=== PATIENT | female | born 1940 | race African-American/Black ===

== ENCOUNTER 2025-03-04 19:07 | Inpatient (IN) | payer MEDICARE, SELFPAY ==
[2025-03-04] VITALS (11 sets, daily range): BP systolic 124–182; BP diastolic 48–111; BMI 20.4
[2025-03-04 13:35] LABS: Hematocrit 35.9 % (37.0-47.0); Hemoglobin 11.5 g/dL (12.0-16.0); Mean Corp Hgb Conc. 32.0 g/dL (33.0-37.0); Mean Corpuscular Volume 95.5 fL (81.0-99.0); Nucleated Red Blood Cells % 0 %; Platelet Count 171 10^3/uL (130-400); Red Cell Dist. Width 13.0 % (11.5-14.5)
[2025-03-04 14:03] LABS: ALT (SGPT) 15 U/L (0-35); AST (SGOT) 23 U/L (14-36); Albumin 3.4 g/dl (3.5-5.0); Alkaline Phosphatase 69 U/L (38-126); Blood Urea Nitrogen 24 mg/dl (7-17); Calcium 8.7 mg/dl (8.4-10.2); Carbon Dioxide 26 mmol/L (22-30); Chloride 112 mmol/L (98-107); Estimated Creatinine Clearance 30 ml/min; Glucose 91 mg/dl (70-99); Potassium 4.1 mmol/L (3.5-5.1); Sodium 141 mmol/L (135-145); Total Protein 6.1 g/dl (6.3-8.2); eGFR 49.55
--- NOTE | 2025-03-04 15:32 | ED.GENMED ---
History of Present Illness
General
Chief Complaint: Weakness
Source: ambulance crew and long term
Exam Limitations: clinical condition and dementia
Time Seen by Provider: 03/04/25 14:01
Nursing documentation reviewed up to this point in time: agreed with
History of Present Illness
History of Present Illness:
pt is a 85 y/o F with h/o alzheimers, stroke with L hemiparesis, htn, hld
[place] and sent via [place] for altered mental status
i spoke justo gilbert from the [facility] on the phone who gave account of what happened
pt was herself this morning, ate breakfast normally, ate lunch and then after was sitting with her and started falling asleep which is unusual, she doesn't usually fall asleep during the day and they would wake her up and she would come out
of it but then fall back asleep again and they thought pt's leg was shaking
for ems pt apparently had HR in the 50s and they thought ekg showed st elevation
pt is asleep here, easily arousable but then when she is awake, is not making much sense
this sounds like partly her [facility], she can communicate some things, usually mixes up words and doesn't follow comamnds at [facility] from her stroke but she can make some sentences that do make sense.
we do not have baselin labs, she has never been here before.
no known issues with new illness, utis, falls
Past History
Past History
ED Past Medical History: CVA, HTN, Hypercholesterolemia and Psychiatric
Review of Systems
Review of Systems
Allergies reviewed?: Yes
Unable to obtain full review of systems at this time due to: dementia
Phy Exam
Physical Exam
Physical Exam:
GENERAL: asleep, easily arousable
HEAD: NCAT
EYE: pupils equal and reactive, no nystagmus, no photophobia
NECK: Supple,full rom, nontender
ENT: o/p clr, mmm.
CARDIAC: Regular rate and rhythm . no edema
LUNGS: Clear breath sounds bilaterally, no acute respiratory distress, no wheezes/rales/rhonchi
ABDOMEN: Soft, without focal tenderness, no r/g, no cvat
NEUROLOGICAL:awake; not oriented; nonsensical speech, doesn't make sense; doesn't follow commands; , no facial asymmetry, LUE contracted; left leg flaccid
SKIN: Warm and dry, skin intact.
MUSCULOSKELETAL: No edema, well perfused.
PSYCH: dementia/stroke; calm
Course
Orders/Labs/Results
Orders:
Orders
03/04/25 13:17
EKG [Electrocardiogram (*1)] Urgent
Reason for Study: Chest Pain
EKG- Treatment ONCE
03/04/25 13:19
Complete Blood Count/With Diff Urgent
Comprehensive Metabolic Panel Urgent
03/04/25 14:32
CT Head W/o Iv Contrast Urgent
Comment:
Reason For Exam: ams, h/o stroke
03/04/25 15:12
COVID-19 Antigen Urgent
Source: Nasal Swab
Troponin I Urgent
03/04/25 16:41
Urinalysis Reflex To Culture Urgent
Date Specimen was Collected: 03/04/25
Time Specimen was Collected: 16:13
Urine Microscopic Reflex Cult Urgent
Urine Culture Urgent
ALIREZA Source: U
Specimen Description:
Date Specimen was Collected: 03/04/25
Time Specimen was Collected: 16:13
03/04/25 18:11
0.9% Sodium Chloride 500 ml [Nss] 500 ml IV BOLUS
CefTRIAXone [Rocephin] 1,000 mg IV NOW STA
Abnormal Lab Results
03/04/25 03/04/25
13:19 16:41
WBC 2.9 L 10^3/uL
(4.8-10.8)
RBC 3.76 L 10^6/uL
(4.20-5.40)
Hgb 11.5 L g/dL
(12.0-16.0)
Hct 35.9 L %
(37.0-47.0)
MCHC 32.0 L g/dL
(33.0-37.0)
MPV 10.8 H fL
(7.4-10.4)
Absolute Lymphs (auto) 1.1 L 10^3/uL
(1.2-3.4)
Monocytes % 13.0 H %
(1.7-9.3)
Chloride 112 H mmol/L
(98-107)
BUN 24 H mg/dl
(7-17)
Creatinine 1.1 H mg/dL
(0.6-1.0)
Total Protein 6.1 L g/dl
(6.3-8.2)
Albumin 3.4 L g/dl
(3.5-5.0)
Leukocyte Esterase Rfl 1+ A
(Negative)
Urine WBC (Reflex) 11-15 A /HPF
(0-5)
Urine Bacteria (Reflex) Many A
(Negative)
Urine Albumin (Reflex) 1+ A
(Neg - Trace)
03/04/25 13:19
03/04/25 13:19
Vital Signs
Initial and Last Documented VS:
Initial Vital Signs
Temp Pulse Resp BP Pulse Ox
36.6 C 58 16 156/111 98
03/04/25 12:59 03/04/25 12:59 03/04/25 12:59 03/04/25 12:59 03/04/25 12:59
Last Documented Vital Signs
Temp Pulse Resp BP Pulse Ox
36.6 C 65 15 139/83 99
03/04/25 12:59 03/04/25 17:30 03/04/25 17:30 03/04/25 17:00 03/04/25 15:33
MDM/Problems Addressed
Differential Diagnosis Includes:
ams, uti
MDM/Problems Addressed:
85 y/o F
from [facility]
stroke and dementia
baseline she does speak but mostly nonsensically and L hemiparesis
falling asleep today which is unusual, didn't seem herself, sometime this afternoon
i spoke with staff who saw her nod off
i tried to call her but there was no answer
pt is sleeping but wakes with verbal stimuli
but then is not following commands; word salad
L hemiparesis, moves RUE
urine looks mildly positive
leukopenia
cr 1.1, no old one
NH did not have any labs
ct head no acute findings
will treat with ivf and abx
*Pulse Oximetry
SaO2: 99
Oxygen Mode of Delivery: Room air
Patient hypoxic: no (98)
*Critical Care Note
Total Time (30-74mins, 75-104mins- exclusive of procedures): Not Applicable
ED Attending Note
-
Portions of this chart may have been created with voice recognition software.� Occasional wrong word or��sound alike� substitutions may have occurred due to the inherent limitations of voice recognition software.
Discharge Plan
Departure
Patient Disposition: Admit
Date of Disposition: 03/04/25
Time of Disposition: 18:11
Admit to: Med/Surg
Presentation/result/management discussed w/ accepting MD/DO: Hospitalist
Condition: Fair
Covid-19: Negative COVID-19
Discharge Problem:
UTI (urinary tract infection), AMS (altered mental status), Dehydration
Prescriptions:
No Action
acetaminophen 325 mg Tablet
650 mg PO Q6H PRN (Reason: mild pain)
clopidogrel 75 mg tablet
75 mg PO DAILY@0800
aspirin 81 mg Tablet,Delayed Release (Dr/Ec)
81 mg PO DAILY@0800
amlodipine 10 mg tablet
10 mg PO DAILY@0800
rosuvastatin 10 mg Tablet
10 mg PO QPM@1999
Referrals:
KEILA GONZALEZ MD [Family Provider, Internal Medicine]
Interventions
Interventions:
*Risk Screen - Suicide Last Done: 03/04/25 14:00
*General Assessment Last Done: 03/04/25 14:00
*Neglect/Abuse Screening Last Done: 03/04/25 14:00
*ED- Fall Risk Assessment Last Done: 03/04/25 14:00
ED- Cardiac Assessment Last Done: 03/04/25 14:00
ED- Neurological Assessment Last Done: 03/04/25 14:00
ED- Pulmonary Assessment Last Done: 03/04/25 14:00
Discharge Date and Time
Print Language: SINGAPOREAN
[2025-03-04 15:43] LABS: COVID-19 Antigen Negative (Negative)
[2025-03-04 15:53] LABS: Troponin I < 0.012 ng/ml
[2025-03-04 17:01] LABS: Urine Character Clear (Clear)
[2025-03-04 17:20] LABS: Urine Red Blood Cell 0-2 /HPF (0-2); Urine Squamous Cell 0-2 /LPF (Few)
--- NOTE | 2025-03-04 18:35 | HPS.HSE ---
Addendum entered and electronically signed by Saw Olmstead MD 03/04/25 19:31:
This is an addendum to H&P written by Barbara Andrews on 03/04/2025. Patient seen and examined independently with HIDE CURER.
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 She was herself
this morning and was sitting with her started falling asleep which was unusual and became more unresponsive and was not speaking. As per patient spouse he did not notice any shaking or seizure-like activity or eye blinking. EMS noted heart
rate in the 50s EKG showed ST elevation. She did seem to complain of some abdominal pain and was rubbing her belly in the morning. No urinary symptoms noted.
Per patient's baseline she can communicate some things and mixes up words and does not follow commands but can speak some sentences. She appears to be back to her baseline
Vital signs normal. On examination patient with stiff left upper extremity, consistent with known hemiparesis from prior CVA.
Labs show white cell count 2.9. Creatinine 1.1. Urinalysis shows 11-15 WBC, +[address] head showed
Patient with acute metabolic encephalopathy likely UTI. Slight RUDOLPH but urinalysis not convincing for UTI. IV fluids, ceftriaxone. Urine culture pending. Was initially going to consider MRI brain however after discussing with and
patient's current improvement this seems likely metabolic in nature.
Original Note:
Family Physician
-
Family Physician: KEILA GONZALEZ MD
Chief Complaint
-
confusion
History of Present Illness
85 y/o F with h/o alzheimers, stroke with L hemiparesis, htn, hld presented [place] and sent via [place] for altered mental status. as per ER note pt was herself this morning, ate breakfast normally, ate lunch and then after was sitting with her
and started falling asleep which is unusual, she doesn't usually fall asleep during the day and they would wake her up and she would come out of it but then fall back asleep again and they thought pt's leg was shaking.
upon my assessment patient laying with eyes closed, easily arousable. ROS limited as patient is confused and does not make any sense.
Patient received a dose of ceftriaxone, normal saline in the ER
Medical History
Past Medical History
Past Medical History: Reports Other
Additional Past Medical History:
Hypertension, arthritis, Alzheimer's
Past Surgical History: Reports Other
Social History
Unable to obtain full social history at this time due to: Acuity
Family History
Family History: Not pertinent
Allergies / Home Medications
Allergies reflects when Allergies were last updated in [employer].
Home Medications with original date entered in [employer]
Allergy/Medication List:
Allergies
Allergy/AdvReac Type Severity Reaction Status Date / Time
memantine (From Namenda) Allergy Unknown Unknown Verified 03/04/25 13:11
Home Medications
acetaminophen 325 mg tablet 650 mg PO Q6H PRN mild pain 03/04/25
amlodipine 10 mg tablet 10 mg PO DAILY@79903/04/25
aspirin 81 mg tablet,delayed release 81 mg PO DAILY@79903/04/25
clopidogrel 75 mg tablet 75 mg PO DAILY@79903/04/25
rosuvastatin 10 mg tablet 10 mg PO QPM@199903/04/25
Review of Systems
-
Unable to obtain full review of systems at this time due to: Acuity
Physical Exam
Vital Signs
Vital Signs
Temp Pulse Resp BP Pulse Ox
97.8 F 65 15 139/83 99
03/04/25 12:59 03/04/25 17:30 03/04/25 17:30 03/04/25 17:00 03/04/25 15:33
Physical Exam
General: Well Developed, Well Nourished and No Apparent Distress
HEENT: NormoCephalic, Moist mucous membranes and Atraumatic
Respiratory: Clear
Cardiac: S1/S2 and Regular Rhythm; No Murmur or Rub
GI: Soft, Non Tender, Non Distended and Normal Bowel Sounds; No Organomegaly
Rectal: Deferred by Provider
Musculoskeletal: No Clubbing, No Cyanosis and No Edema
Skin: No Rash
Neuro: Nonfocal/grossly intact
Psych: Confused
Laboratory Results
-
03/04/25 13:19
03/04/25 13:19
Laboratory Results
Total Bilirubin 0.4 mg/dl (0.2-1.3) 03/04/25 13:19
AST 23 U/L (14-36) 03/04/25 13:19
ALT 15 U/L (0-35) 03/04/25 13:19
Alkaline Phosphatase 69 U/L (38-126) 03/04/25 13:19
Troponin I < 0.012 ng/ml 03/04/25 15:12
Data Reviewed
-
CT Scan: Report Reviewed by me
Lab Data: Labs Reviewed by me
Impression/Plan
-
# Metabolic encephalopathy likely secondary to UTI VS CVA
- WBCs 2.9
- CT head negative for acute findings, old lacunar infracts.
- IV ceftriaxone continued
- CBC in a.m.
-obtain MRI in AM r/o acute CVA
-consider neuro consult if MRI positive.
-urine culture pending.
# Acute kidney injury likely chronic vs dehydration
- Creatinine 1.1
- Normal saline in the ER
- BMP in a.m.
# history of CVA with left hemiparesis
- Aspirin, Plavix, statin continued
#Essential hypertension
- Norvasc continue with all parameters
# DVT prophylaxis
- Lovenox
# CODE STATUS
- DNR
[2025-03-04] MEDS: ROCEPHIN 1000 MG IV (19:12)
[2025-03-04] MEDS: NSS 500 IV (19:12)
--- NOTE | 2025-03-04 19:31 | EDRN ---
Report received, braeden meds ordered and sent paperwork to the floor
[2025-03-04] MEDS: CRESTOR PO (21:34)
[2025-03-04] MEDS: NSS 1000 IV (23:41)
[2025-03-05] MEDS: APRESOLINE 5 MG IV (00:12)
--- NOTE | 2025-03-05 00:24 | PTCARENOTE ---
received pt from ED on 03/04 at 2020. pt pulled over from stretcher to bed. A&O x 1, with expressive aphasia. However does not follow simple commands. pt made comfortable in bed, call pierce within reach.
[2025-03-05 03:33] VITALS: BP 108/73
[2025-03-05 07:06] VITALS: BP 110/78
[2025-03-05 07:49] LABS: Hematocrit 37.6 % (37.0-47.0); Hemoglobin 12.5 g/dL (12.0-16.0); Mean Corp Hgb Conc. 33.2 g/dL (33.0-37.0); Mean Corpuscular Volume 91.0 fL (81.0-99.0); Platelet Count 176 10^3/uL (130-400); Red Cell Dist. Width 12.4 % (11.5-14.5)
[2025-03-05 08:15] LABS: Blood Urea Nitrogen 19 mg/dl (7-17); Calcium 9.5 mg/dl (8.4-10.2); Carbon Dioxide 27 mmol/L (22-30); Chloride 108 mmol/L (98-107); Estimated Creatinine Clearance 33 ml/min; Glucose 95 mg/dl (70-99); Potassium 4.4 mmol/L (3.5-5.1); Sodium 141 mmol/L (135-145); eGFR 55.55
[2025-03-05] MEDS: PLAVIX 75 MG PO (09:43)
[2025-03-05] MEDS: ASPIR LOW (ENTERIC COATED) 81 MG PO (09:43)
[2025-03-05] MEDS: NORVASC 10 MG PO (09:43)
--- NOTE | 2025-03-05 11:23 | W.PN.HOSP.TC ---
Today's Communication/Plan
-
CW IV ceftriaxone
Follow labs
PT/OT eval
DC planning
Assessment / Plan
Assessment / Plan
# Change in MS -suspect sec to acute toxic encephalopathy likely secondary to UTI
- WBCs 2.9
- US with pyuria
- CT head negative for acute findings, old lacunar infracts.
- cw IV ceftriaxone continued
-urine culture pending.
- Non focal neurologically but difficult to examine due to dementia
#Possible Acute kidney injury ? dehydration - unkown baseline
- Creatinine 1.1 -improving to 1.0
- hold further IV fluids as taking PO
- Follow BMP
# history of CVA with left hemiparesis
- Aspirin, Plavix, statin continued
#Essential hypertension
- Norvasc continue with all parameters
# DVT prophylaxis
- Lovenox
# CODE STATUS
- DNR
Anticipated Discharge: 24 - 48 hours
Subjective/Interval History
-
Date of Service: March 05, 2025
Pleasantly confused with smile on her face. No meaningful history from the patient's due to his dementia.
Objective Data
-
Labs:
Laboratory Results
03/05/25
06:44
WBC 3.8 L
Hgb 12.5
Hct 37.6
Plt Count 176
Sodium 141
Potassium 4.4
Chloride 108 H
Carbon Dioxide 27
BUN 19 H
Creatinine 1.0
Glucose 95
Calcium 9.5
Vital Signs:
Vital Signs
Temp Pulse Resp BP Pulse Ox
97.4 F 72 16 110/78 94
03/04/25 23:16 03/05/25 09:43 03/05/25 07:06 03/05/25 09:43 03/05/25 07:06
I&O
03/04/25 03/05/25 03/06/25
06:59 06:59 06:59
Intake Total 600 / 600
Balance 600 / 600
Review of Systems
-
Unable to obtain full review of systems at this time due to: Dementia
Physical Exam
-
General: Comfortable
Respiratory: Clear to Auscultation and Non Labored Respirations; Negative Accessory Resp Muscle Use
Cardiac: Regular Rhythm and S1/S2; Negative Tachycardic
GI: Soft and Nontender
Musculoskeletal: No Edema
Neuro: Awake, Alert, No Motor Deficits (moves all 4 limbs but difficult to examine due to dementia ), Tremors and Other (JING ;no nystagmus); Negative Oriented, Slurred Speech or Facial Droop
Psych: Calm and Confused; Negative Agitated
Data Reviewed
-
Labs: Labs Reviewed by me
[2025-03-05] MEDS: NSS 1000 IV (12:38)
[2025-03-05 15:16] VITALS: BP 110/74
--- NOTE | 2025-03-05 15:23 | CM ---
Unable to complete initial assessment with patient due to confusion and dementia. Called POA, Mr. Serafin Lei, no answer at [phone]. Also no voice mail to leave message after 10 rings. Information obtained from medical records. Patient
resides at [facility] in [place]. She was admitted with weakness, dementia, S/P CVA with residual L hemiparesis. Presents with confusion. PCP is Dr. Emory Mckeon. IMM not reviewed due to inability to reach POA. Discharge POC:
TBD. Await therapy evaluation.
[2025-03-05] MEDS: LOVENOX SC (17:30)
[2025-03-05] MEDS: ROCEPHIN 1000 MG IV (17:36)
[2025-03-05] MEDS: STERILE WATER FOR INJECTION 10 ML IV (17:37)
[2025-03-05] MEDS: CRESTOR 10 MG PO (19:43)
[2025-03-05 23:06] VITALS: BP 148/75
[2025-03-06 07:35] VITALS: BP 107/76
[2025-03-06 07:35] LABS: Hematocrit 35.7 % (37.0-47.0); Hemoglobin 11.9 g/dL (12.0-16.0); Mean Corp Hgb Conc. 33.3 g/dL (33.0-37.0); Mean Corpuscular Volume 90.2 fL (81.0-99.0); Platelet Count 185 10^3/uL (130-400); Red Cell Dist. Width 12.5 % (11.5-14.5)
[2025-03-06 08:10] LABS: Blood Urea Nitrogen 15 mg/dl (7-17); Calcium 8.8 mg/dl (8.4-10.2); Carbon Dioxide 29 mmol/L (22-30); Chloride 109 mmol/L (98-107); Estimated Creatinine Clearance 30 ml/min; Glucose 96 mg/dl (70-99); Potassium 4.1 mmol/L (3.5-5.1); Sodium 142 mmol/L (135-145); eGFR 49.55
[2025-03-06] MEDS: ASPIR LOW (ENTERIC COATED) 81 MG PO (10:28)
[2025-03-06] MEDS: PLAVIX 75 MG PO (10:28)
[2025-03-06] MEDS: NORVASC 10 MG PO (10:28)
--- NOTE | 2025-03-06 14:32 | W.PN.HOSP.TC ---
Today's Communication/Plan
-
f/u urine cultures
Assessment / Plan
Assessment / Plan
# Change in MS -suspect sec to acute toxic encephalopathy likely secondary to UTI
- US with pyuria
- CT head negative for acute findings, old lacunar infracts.
- cw IV ceftriaxone continued
-urine culture pending.
- Non focal neurologically but difficult to examine due to dementia
#RUDOLPH v CKD
- Creatinine 1.1 -improving to 1.0
- hold further IV fluids as taking PO
- Follow BMP
# history of CVA with left hemiparesis
- Aspirin, Plavix, statin continued
#Essential hypertension
- Norvasc continue with all parameters
# DVT prophylaxis
- Lovenox
# CODE STATUS
- DNR
Anticipated Discharge: Within 24 hours
Subjective/Interval History
-
Date of Service: March 06, 2025
no acute events overnight
Objective Data
-
Labs:
Laboratory Results
03/06/25
07:04
WBC 2.9 L
Hgb 11.9 L
Hct 35.7 L
Plt Count 185
Sodium 142
Potassium 4.1
Chloride 109 H
Carbon Dioxide 29
BUN 15
Creatinine 1.1 H
Glucose 96
Calcium 8.8
Vital Signs:
Vital Signs
Temp Pulse Resp BP Pulse Ox
98.7 F 59 16 122/70 98
03/06/25 07:35 03/06/25 07:35 03/06/25 07:35 03/06/25 10:28 03/06/25 07:35
I&O
03/05/25 03/06/25 03/07/25
06:59 06:59 06:59
Intake Total 600 / 600 120 / 120
Balance 600 / 600 120 / 120
Review of Systems
-
Unable to obtain full review of systems at this time due to: Dementia
Physical Exam
-
General: Comfortable
Respiratory: Clear to Auscultation and Non Labored Respirations; Negative Accessory Resp Muscle Use
Cardiac: Regular Rhythm and S1/S2; Negative Tachycardic
GI: Soft and Nontender
Musculoskeletal: No Edema
Neuro: Awake, Alert, No Motor Deficits (moves all 4 limbs but difficult to examine due to dementia ), Tremors and Other (JING ;no nystagmus); Negative Oriented, Slurred Speech or Facial Droop
Psych: Calm and Confused; Negative Agitated
Data Reviewed
-
Labs: Labs Reviewed by me
[2025-03-06 15:10] VITALS: BP 165/92
[2025-03-06] MEDS: STERILE WATER FOR INJECTION 10 ML IV (17:44)
[2025-03-06] MEDS: ROCEPHIN 1000 MG IV (17:45)
[2025-03-06] MEDS: LOVENOX 40 MG SC (17:47)
[2025-03-06] MEDS: CRESTOR 10 MG PO (21:56)
[2025-03-06 23:49] VITALS: BP 147/68
[2025-03-07 07:25] VITALS: BP 152/66
[2025-03-07 09:13] LABS: Blood Urea Nitrogen 16 mg/dl (7-17); Calcium 9.7 mg/dl (8.4-10.2); Carbon Dioxide 27 mmol/L (22-30); Chloride 105 mmol/L (98-107); Estimated Creatinine Clearance 30 ml/min; Glucose 100 mg/dl (70-99); Potassium 4.3 mmol/L (3.5-5.1); Sodium 141 mmol/L (135-145); eGFR 49.55
[2025-03-07 09:15] LABS: Hematocrit 42.6 % (37.0-47.0); Hemoglobin 14.3 g/dL (12.0-16.0); Mean Corp Hgb Conc. 33.6 g/dL (33.0-37.0); Mean Corpuscular Volume 90.3 fL (81.0-99.0); Platelet Count 206 10^3/uL (130-400); Red Cell Dist. Width 12.3 % (11.5-14.5)
[2025-03-07] MEDS: ASPIR LOW (ENTERIC COATED) 81 MG PO (09:26)
[2025-03-07] MEDS: NORVASC 10 MG PO (09:26)
[2025-03-07] MEDS: PLAVIX 75 MG PO (09:27)
--- NOTE | 2025-03-07 13:58 | W.PN.HOSP.TC ---
Addendum entered and electronically signed by Joe Razo MD 03/07/25 15:59:
[id number]
Original Note:
Today's Communication/Plan
-
f/u outpt
monitor bmp
Assessment / Plan
Assessment / Plan
# Acute on chronic metabolic encephalopathy, secondary to dementia
� No obvious source of infection, UA negative
� Patient's status appeared to be baseline prior to admission
� May suspect altering mental status, worsening in setting of ongoing dementia
-�Urine cultures negative, DC antibiotics
- Non focal neurologically but difficult to examine due to dementia
#RUDOLPH v CKD
- Creatinine 1.1 -improving to 1.0
- hold further IV fluids as taking PO
- Follow BMP
# history of CVA with left hemiparesis
- Aspirin, Plavix, statin continued
#Essential hypertension
- Norvasc continue with all parameters
# DVT prophylaxis
- Lovenox
# CODE STATUS
- DNR
More than 30 minutes spent in discharge including
Final examination of the patient
Summarizing hospital stay
Instructions for continuing care to all relevant caregivers
Preparation of discharge records, prescriptions, and referral forms
Total time spent (in minutes): 36
Anticipated Discharge: Today
Subjective/Interval History
-
Date of Service: March 07, 2025
No acute changes overnight
Objective Data
-
Labs:
Laboratory Results
03/07/25
08:16
WBC 3.7 L
Hgb 14.3 D
Hct 42.6
Plt Count 206
Sodium 141
Potassium 4.3
Chloride 105
Carbon Dioxide 27
BUN 16
Creatinine 1.1 H
Glucose 100 H
Calcium 9.7
Vital Signs:
Vital Signs
Temp Pulse Resp BP Pulse Ox
97.7 F 68 18 150/64 99
03/07/25 07:25 03/07/25 09:26 03/07/25 07:25 03/07/25 09:26 03/07/25 07:25
I&O
03/06/25 03/07/25 03/08/25
06:59 06:59 06:59
Intake Total 120 / 120 240 / 240
Balance 120 / 120 240 / 240
Review of Systems
-
Unable to obtain full review of systems at this time due to: Dementia
Physical Exam
-
General: Comfortable
Respiratory: Clear to Auscultation and Non Labored Respirations; Negative Accessory Resp Muscle Use
Cardiac: Regular Rhythm and S1/S2; Negative Tachycardic
GI: Soft and Nontender
Musculoskeletal: No Edema
Neuro: Awake, Alert, No Motor Deficits (moves all 4 limbs but difficult to examine due to dementia ), Tremors and Other (JING ;no nystagmus); Negative Oriented, Slurred Speech or Facial Droop
Psych: Calm and Confused; Negative Agitated
Data Reviewed
-
CT Scan: Report Reviewed by me
Labs: Labs Reviewed by me
--- NOTE | 2025-03-07 14:03 | W.DS.TRANS ---
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
-
Discharge Instructions:
Discharge Diagnosis/Procedures Delirium; acute on chronic encephalopathy
secondary to dementia
Diet Low Cholesterol,Low Fat
Activity As tolerated
Blood Work CBC and BMP within 1 week
Instructions:
Stand-Alone Forms:
Changes to Home Medications: No
Discharge Medications:
DC Medications w/original date entered in [employer]
acetaminophen 325 mg tablet 650 mg PO Q6H PRN mild pain 03/04/25
amlodipine 10 mg tablet 10 mg PO DAILY@0800 Blood Pressure 03/04/25
aspirin 81 mg tablet,delayed release 81 mg PO DAILY@0800 Blood Clot Prevention/Tx 03/04/25
clopidogrel 75 mg tablet 75 mg PO DAILY@0800 Blood Clot Prevention/Tx 03/04/25
rosuvastatin 10 mg tablet 10 mg PO QPM@2000 High Cholesterol 03/04/25
Home Medication Changes
na
Pending Results: No
--- NOTE | 2025-03-07 14:10 | CM ---
Addendum entered by DOROTA Vergara 03/07/25 14:18:
Placed a call to patient' spouse and poa however there was no answer and no voice mail to leave a message. Put IMM in chart, not able to be signed.
cont from below, Echo did confirm that patient is at her baseline level of functioning.
Original Note:
Spoke with attending who stated that patient is medically stable for discharge. Placed a call to patient's [facility] and spoke with admissions, Echo who confirmed patient's ability to be able to return. Attending updated.
#For report [phone]
# For
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
Plan: Case management will continue to follow and assist with discharge planning. Back to [facility].
== END 2025-03-07 15:11 | DRG 884 ==
LOC: 4 EAST ACU 19:07
PROVIDERS: Physician Assistant; Registered Nurse; ADMITTING PHYSICIAN Hospitalist; ATTENDING PHYSICIAN Internal Medicine; EMERGENCY PHYSICIAN Emergency Medicine; FAMILY PHYSICIAN Internal Medicine
DX: F02.80 Dementia in other diseases classified elsewhere, unspecified severity, without behavioral disturbance, psychotic disturbance, mood disturbance, and anxiety (principal); G93.41 Metabolic encephalopathy; I69.354 Hemiplegia and hemiparesis following cerebral infarction affecting left non-dominant side; I12.9 Hypertensive chronic kidney disease with stage 1 through stage 4 chronic kidney disease, or unspecified chronic kidney disease; Z66 Do not resuscitate; G30.9 Alzheimer's disease, unspecified; N18.9 Chronic kidney disease, unspecified
CPT/HCPCS: 70450; 80048; 80053; 81003; 81015; 84443; 84484; 85025; 85027; 87070; 87086; 87811; 93005; 99285